=== PATIENT | male | born 1945 ===

== ENCOUNTER → 2023-08-20 09:16 | Outpatient (REF) | payer MEDICARE, OTHER, SELFPAY ==
[2023-08-20 11:43] LABS: Glycohemoglobin (HgbA1c) 8.1 % (4.0-5.6)
== END ==
LOC: OLABN 09:16
PROVIDERS: ATTENDING PHYSICIAN Student in an Organized Health Care Education/Training Program
DX: E11.21 Type 2 diabetes mellitus with diabetic nephropathy (principal)
CPT/HCPCS: 36415; 83036

== ENCOUNTER → 2024-02-25 10:24 | Outpatient (REF) | payer MEDICARE, OTHER, SELFPAY ==
[2024-02-25 11:57] LABS: Blood Urea Nitrogen 21 mg/dl (9-20); Calcium 8.9 mg/dl (8.4-10.2); Carbon Dioxide 31 mmol/L (22-30); Chloride 101 mmol/L (98-107); Glucose 120 mg/dl (70-99); Potassium 4.5 mmol/L (3.5-5.1); Sodium 137 mmol/L (135-145); eGFR > 60.00
== END ==
LOC: OLABN 10:24
PROVIDERS: ATTENDING PHYSICIAN Student in an Organized Health Care Education/Training Program
DX: I48.0 Paroxysmal atrial fibrillation (principal)
CPT/HCPCS: 36415; 80048

== ENCOUNTER → 2024-04-16 10:20 | Outpatient (REF) | payer MEDICARE, OTHER, SELFPAY ==
[2024-04-16 12:06] LABS: Glycohemoglobin (HgbA1c) 7.4 % (4.0-5.6)
== END ==
LOC: OLABN 10:20
PROVIDERS: ATTENDING PHYSICIAN Student in an Organized Health Care Education/Training Program
DX: E11.21 Type 2 diabetes mellitus with diabetic nephropathy (principal)
CPT/HCPCS: 36415; 83036

== ENCOUNTER → 2024-07-17 10:15 | Outpatient (REF) | payer MEDICARE, OTHER, SELFPAY ==
[2024-07-17 12:35] LABS: Glycohemoglobin (HgbA1c) 7.4 % (4.0-5.6)
== END ==
LOC: OLABN 10:15
PROVIDERS: ATTENDING PHYSICIAN Student in an Organized Health Care Education/Training Program
DX: E11.21 Type 2 diabetes mellitus with diabetic nephropathy (principal)
CPT/HCPCS: 36415; 83036

== ENCOUNTER → 2024-10-19 10:25 | Outpatient (REF) | payer MEDICARE, OTHER, SELFPAY ==
[2024-10-19 11:20] LABS: Hemoglobin 13.8 g/dL (13.0-18.0); Mean Corp Hgb Conc. 34.5 g/dL (33.0-37.0); Mean Corpuscular Hgb 33.9 pg (27.0-31.0); Mean Corpuscular Volume 98.3 fL (80.0-94.0); Mean Platelet Volume 12.8 fL (7.4-10.4); Platelet Count 144 10^3/uL (130-400); Red Blood Cell Count 4.07 10^6/uL (4.70-6.10); Red Cell Dist. Width 11.7 % (11.5-14.5); White Blood Cell Count 8.8 10^3/uL (4.8-10.8)
[2024-10-19 11:57] LABS: Blood Urea Nitrogen 19 mg/dl (9-20); Calcium 8.7 mg/dl (8.4-10.2); Carbon Dioxide 29 mmol/L (22-30); Chloride 105 mmol/L (98-107); Glucose 122 mg/dl (70-99); Sodium 143 mmol/L (135-145); eGFR > 60.00
[2024-10-19 12:03] LABS: Glycohemoglobin (HgbA1c) 7.5 % (4.0-5.6)
[2024-10-19 14:21] LABS: Vitamin D, 25-OH*** 42.1 ng/mL (30-80)
[2024-10-19 14:35] LABS: TSH 2.76 uIU/ml (0.47-4.68)
== END ==
LOC: OLABN 10:25
PROVIDERS: ATTENDING PHYSICIAN Student in an Organized Health Care Education/Training Program
DX: E55.9 Vitamin D deficiency, unspecified (principal); R94.6 Abnormal results of thyroid function studies; E11.21 Type 2 diabetes mellitus with diabetic nephropathy
CPT/HCPCS: 36415; 80048; 82306; 83036; 84443; 85027

== ENCOUNTER → 2024-11-23 09:54 | Outpatient (REF) | payer MEDICARE, OTHER, SELFPAY ==
[2024-11-23 10:44] LABS: Blood Urea Nitrogen 28 mg/dl (9-20); Carbon Dioxide 33 mmol/L (22-30); Chloride 107 mmol/L (98-107); Glucose 206 mg/dl (70-99); Potassium 4.1 mmol/L (3.5-5.1); Sodium 145 mmol/L (135-145); Uric Acid 8.1 mg/dl (3.5-8.5); eGFR > 60.00
== END ==
LOC: OLABN 09:54
PROVIDERS: ATTENDING PHYSICIAN Student in an Organized Health Care Education/Training Program
DX: R22.31 Localized swelling, mass and lump, right upper limb (principal)
CPT/HCPCS: 36415; 80048; 84550

== ENCOUNTER → 2025-01-13 12:12 | Outpatient (REF) | payer MEDICARE, OTHER, SELFPAY | LOC: OLABN 12:12 | PROVIDERS: ATTENDING PHYSICIAN Student in an Organized Health Care Education/Training Program | DX: E11.21 Type 2 diabetes mellitus with diabetic nephropathy (principal) | CPT/HCPCS: 36415 ==

== ENCOUNTER → 2025-02-03 15:51 | Outpatient (REF) | payer MEDICARE, OTHER, SELFPAY ==
[2025-02-03 17:03] LABS: Urine Character Clear (Clear)
[2025-02-03 17:13] LABS: Urine Squamous Cell 0-2 /LPF (Few); Urine White Cell 0-2 /HPF (0-5)
== END ==
LOC: OLABN 15:51
PROVIDERS: ATTENDING PHYSICIAN Student in an Organized Health Care Education/Training Program
DX: R82.90 Unspecified abnormal findings in urine (principal)
CPT/HCPCS: 81003; 81015; 87086

== ENCOUNTER 2025-02-05 05:00 | Inpatient (IN) | payer MEDICARE, OTHER, SELFPAY ==
[2025-02-05] VITALS (62 sets, daily range): BP systolic 87–121; BP diastolic 53–85; BMI 21.5; BMI 20.7
--- NOTE | 2025-02-05 01:38 | ED.GENMED ---
History of Present Illness
General
Chief Complaint: Breathing Problem
Source: patient
Exam Limitations: none
Time Seen by Provider: 02/05/25 01:37
Nursing documentation reviewed up to this point in time: agreed with
History of Present Illness
History of Present Illness:
Patient presents to ED from custodial secondary to mental status change along with low oxygen level, noted by staff during D5 water infusion, which was started secondary to 'hyponatremia'. Patient does have a history of dementia and does not
verbalize often, but is able to answer yes or no to simple questions. Per brother, via phone, patient has been declining overall for the past couple weeks, becoming less responsive and less verbal. Patient does have DNR advance directive on file,
confirmed by brother. Patient is not to receive any invasive procedures, i.e. intubation or chest compressions. Brother does request medical treatment. Patient is not able to provide any further information. Patient, however, is found to be
febrile upon arrival.
Past History
Past History
ED Past Medical History: Arrthythmia, HTN, Hypercholesterolemia, IDDM and Other (dementia, Parkinson's, sleep apnea)
Review of Systems
Review of Systems
Allergies reviewed?: Yes
Unable to obtain full review of systems at this time due to: dementia
All Other Systems: Not applicable
Phy Exam
Physical Exam
Physical Exam:
Physical Exam
General: mild respiratory distress, acutely ill. febrile
Head: nc/at
Neck: supple. no meningeal signs. no jvd
Heart: irregularly irregular
Lungs: no acute respiratory distress. clear bilaterally
Abdomen: normal bowel sounds. not tender.
Neuro: awake, but not following commands.
Skin: no rash
Psychiatric: well kept. interactive and cooperative
Extremities: no edema. no calf tenderness.
Scores
Heart Failure Risk
Heart Failure Risk Score: Not Applicable
Sepsis
Sepsis Screening
Sepsis Assessment: Sepsis
Sepsis Screen
Sepsis Screen: Sepsis
Date: 02/08/25
Time: 08:09
Course
Orders/Labs/Results
Orders:
Orders
02/05/25 01:28
Electrocardiogram (*1) Urgent
Reason for Study: Other
Other Reason for Exam: Respiratory Distress
EKG- Treatment ONCE
02/05/25 01:29
Complete Blood Count/With Diff Urgent
Comprehensive Metabolic Panel Urgent
NT-proBNP Urgent
02/05/25 01:37
CR Chest Portable - 1 View Urgent
Comment:
Reason For Exam: sob/hypoxia
Reason Study Needs to be Portable: Patient Unstable
02/05/25 01:49
Lactic Acid Q4H
Comment: WITH 1ST SET OF BLOOD CULTURES,CANCEL 2ND LACTIC ACID IF FIRST <2
02/05/25 02:02
Blood Culture Urgent
MANUEL Source: Blood/Venous
Specimen Description:
Date Specimen was Collected: 02/05/25
Time Specimen was Collected: 02:00
02/05/25 02:10
Blood Culture Urgent
MANUEL Source: Blood/Venous
Specimen Description:
Date Specimen was Collected: 02/05/25
02/05/25 02:18
Furosemide [Lasix] 20 mg IV NOW STA
02/05/25 02:28
CT Head W/o Iv Contrast Urgent
Comment:
Reason For Exam: mental status change
02/05/25 02:29
Arterial Blood Gas Urgent
%Oxygen/Room Air: 75
02/05/25 02:35
Piperacillin/Tazo 3.375 Gram [Zosyn] 3.375 gram in 50 ml IV NOW
02/05/25 02:36
Straight cath- Treatment ONCE
02/05/25 02:43
Acetaminophen [Tylenol/Feverall] 650 mg RECTAL NOW STA
02/05/25 03:22
Osmolality, Random Urine Urgent
Date Specimen was Collected: 02/05/25
Time Specimen was Collected: 03:14
Comment: ADD ON
Urinalysis Reflex To Culture Urgent
Date Specimen was Collected: 02/05/25
Time Specimen was Collected: 03:14
Urine Microscopic Reflex Cult Urgent
Urine Culture Urgent
MANUEL Source: U
Specimen Description:
Date Specimen was Collected: 02/05/25
Time Specimen was Collected: 03:14
02/05/25 03:57
COVID-19 Antigen Stat
Source: Nasal Swab
Influenza A+B Rapid Molecular Stat
MANUEL Source: Nasal Swab
Specimen Description:
02/05/25 04:07
Straight Cath As Directed
Frequency: One time now
02/05/25 04:30
Admit/Transfer Patient As Directed
Co-Sign Provider:
Level of Care: Inpatient admission
Assign to:: IMU- Intermediate Care
Physician / Group: Estuardo
Diagnosis: Acute hypoxic respiratory failure
Reason for Hospitalization: Hypoxic respiratory failure
Expected length of stay greater than two midnights?: Yes
ELOS- Estimated Length of Stay in days: 2
I certify the patient meets the requirements for IP care: Yes
02/05/25 04:31
PRN Pain Medication Management As Directed
May give lesser potent ordered pain med per pt: Yes
preference::
Protocol:: Medication orders for pain may be administered in a
manner that supports deferring to patient preference
when the pt is:
- Requesting an ordered lesser potent pain medication.
Least to most potent pain medications are defined
as: acetaminophen < NSAID < tramadol < opioids
(morphine, oxycodone, hydromorphone).
- Requesting a lesser dose of the same medication IF
ORDERED.
- Requesting a less intrusive route of administration
if both routes are prescribed by the provider (PO <
IV).
02/05/25 04:33
Code Status As Directed
Resuscitation Status: Do not resuscitate
Reached after discussion with pt or family/Healthcare POA: Yes
DNR Bracelet Application ONCE
02/05/25 04:45
Dextrose 5%/Water 1000 ml [D5w] 1,000 ml IV 125 mls/hr
02/05/25 05:00
Vancomycin [Vancocin] 2,000 mg 0.9% Sodium Chloride 500 ml [Nss] 500 ml IV ONCE
02/05/25 05:55
Acetaminophen [Tylenol/Feverall] 650 mg RECTAL Q6HPRN PRN
Acetaminophen [Tylenol] 650 mg PO Q4HPRN PRN
Ondansetron Injectable [Zofran] 4 mg IV Q6HPRN PRN
02/05/25 05:55
Echo 2D MMode Color/Doppler Routine
Reason for Study: hypoxia, eval EF, HCM
Consult Notification Routine
Specialty to Notify: Pulmonary
Date consulting provider notified: 02/05/25
Time consulting provider notified: 07:27
Notified:: Provider
PULMONARY CONSULT Routine
Consulting Provider: Sherley Schmid
Was physician already notified: No
Reason for consult: hypoxic respiratory failure
VTE Contraindication Routine
VTE Mechanical Device Contraindication: Medical Contraindication
Pharmocologic Contraindication: Medical Contraindication
Activity As Directed
Activity Level: Out of Bed-Early Mobility
Bedside Glucose Monitoring As Directed
Frequency: Q6H
Intake/ Output As Directed
Frequency: Per unit guidelines
Vital Signs As Directed
Frequency: Per unit guidelines
Weight As Directed
Frequency: Once
Comment: on admission
O2 Therapy [RESP] Routine
Non-Rebreather Mask: Yes
High Flow Nasal Cannula FIO2%: 100
High Flow Nasal Cannula Liter Flow: 60
Titrate/Wean O2 to maintain O2 sat greater than (%): 88
Special Instructions: Wean as tolerated
Pulse Ox/cont/shift [RESP] Routine
Quantity: 1
Special Instructions: notify provider if SPO2 < 91%
Pt Eval And Treat Routine
Activity Level: With Assistance
Speech Therapy Eval & Treat Routine
02/05/25 Breakfast
NPO
Allow oral meds: Yes
Allow clear liquids: Sips of Clears
Insulin Aspart Corrective Low [Novolog Flexpen-Low Resistance] See Protocol SC Q6
02/05/25 06:36
Basic Metabolic Panel IN AM
Lactic Acid Q4H
Comment: WITH 1ST SET OF BLOOD CULTURES,CANCEL 2ND LACTIC ACID IF FIRST <2
Procalcitonin IN AM
If negative, will antibiotics be d/c'd or not started: Yes
Does the patient have renal or hepatic impairment?: No
Any recent (w/in 48 hrs) physiologic stress (CPR, rhabdo): No
Prothrombin Time IN AM
Legionella Urinary Antigen Routine
MANUEL Source: Urine
Specimen Description:
Strep pneumoniae Antigen Routine
MANUEL Source: Urine
Specimen Description:
02/05/25 06:37
Complete Blood Count/No Diff IN AM
02/05/25 08:00
Apixaban [Eliquis] 5 mg PO BID
Piperacillin/Tazo 3.375 Gram [Zosyn] 3.375 gram in 50 ml IV Q6H
02/05/25 18:30
Venlafaxine Extended Release [Effexor Xr] 37.5 mg PO DAILY@1830
02/05/25 22:00
Tamsulosin [Flomax] 0.4 mg PO HS
Abnormal Lab Results
02/05/25 02/05/25 02/05/25
01:29 01:49 02:29
RBC 4.69 L 10^6/uL
(4.70-6.10)
MCV 102.1 H fL
(80.0-94.0)
MCH 33.5 H pg
(27.0-31.0)
MCHC 32.8 L g/dL
(33.0-37.0)
MPV 12.8 H fL
(7.4-10.4)
Absolute Neuts (auto) 8.4 H 10^3/uL
(1.4-6.5)
Absolute Lymphs (auto) 0.5 L 10^3/uL
(1.2-3.4)
Neutrophils % 88.0 H %
(42.2-75.2)
Lymphocytes % 5.1 L %
(20.5-51.1)
pO2 69 L mmHg
(83-108)
HCO3 30.6 H mmol/L
(21-28)
Sodium 157 H mmol/L
(135-145)
Chloride 120 H mmol/L
(98-107)
BUN 45 H mg/dl
(9-20)
Glucose 170 H mg/dl
(70-99)
Lactic Acid 2.5 H mmol/L
(0.7-2.0)
Total Bilirubin 1.7 H mg/dl
(0.2-1.3)
Urine Bilirubin
Urine Urobilinogen
Leukocyte Esterase Rfl
Urine RBC
Urine Bacteria (Reflex)
Urine Albumin (Reflex)
02/05/25
03:22
RBC
MCV
MCH
MCHC
MPV
Absolute Neuts (auto)
Absolute Lymphs (auto)
Neutrophils %
Lymphocytes %
pO2
HCO3
Sodium
Chloride
BUN
Glucose
Lactic Acid
Total Bilirubin
Urine Bilirubin 2+ A
(Negative)
Urine Urobilinogen 3+ A
(Neg - 1+)
Leukocyte Esterase Rfl 3+ A
(Negative)
Urine RBC 3-6 A /HPF
(0-2)
Urine Bacteria (Reflex) Few A
(Negative)
Urine Albumin (Reflex) 2+ A
(Neg - Trace)
02/05/25 01:29
02/05/25 01:29
Vital Signs
Initial and Last Documented VS:
Initial Vital Signs
Temp Pulse Resp BP Pulse Ox
101 F H 100 37 104/79 92
02/05/25 01:24 02/05/25 01:24 02/05/25 01:24 02/05/25 01:24 02/05/25 01:24
Last Documented Vital Signs
Temp Pulse Resp BP Pulse Ox
97.6 F 108 23 101/69 74
02/06/25 08:06 02/06/25 13:00 02/06/25 13:00 02/06/25 10:30 02/06/25 13:00
MDM/Problems Addressed
MDM/Problems Addressed:
Discussed with patient's brother, Jaylon Ragsdale, immediately upon patient's arrival. Discussed patient's CODE STATUS -DNR/DNI. Patient will be provided with medical support.
During observation, patient becoming more somnolent. ABG and CT head ordered. Patient presentation concerning for potential hypercapnia versus aspiration pneumonia versus less likely CVA.
Patient will be admitted for further evaluation and treatment, including IV antibiotics. As patient is on chronic Lasix treatment, with clinical findings concerning for fluid overload, patient will be given Lasix 20 mg IV.
Arterial blood gas results reviewed, significant hypoxia, without evidence of hypercapnia. As such, patient will be started on high flow oxygen.
Critical care statement: A total of 40 minutes of critical care time was provided for this patient. This includes management of unstable vital signs, evaluation of the patient at bedside, reviewing the patient's pertinent medical records, review of
old EKGs and review of pertinent medical records. This time with separate from time utilized to perform the aforementioned documented procedures
*Pulse Oximetry
SaO2: 92
Oxygen Mode of Delivery: Non-rebreather mask
Patient hypoxic: yes
*Critical Care Note
Total Time (30-74mins, 75-104mins- exclusive of procedures): 40 min
ED Attending Note
-
Portions of this chart may have been created with voice recognition software.� Occasional wrong word or��sound alike� substitutions may have occurred due to the inherent limitations of voice recognition software.
Discharge Plan
Departure
Patient Disposition: Admit
Date of Disposition: 02/05/25
Time of Disposition: 02:48
Admit to: IMU
Presentation/result/management discussed w/ accepting MD/DO: Hospitalist
Discharge Problem:
Hypoxia, Fever
Interventions
Interventions:
*Risk Screen - Suicide Last Done: 02/05/25 01:45
*General Assessment Last Done: 02/05/25 02:21
*Neglect/Abuse Screening Last Done: 02/05/25 03:32
*ED- Fall Risk Assessment Last Done: 02/05/25 02:21
*ED COVID-19 Vaccine History Last Done: 02/05/25 02:21
*Nursing Disposition Last Done: 02/05/25 06:14
ED- Cardiac Assessment Last Done: 02/05/25 02:13
ED- Pulmonary Assessment Last Done: 02/05/25 02:14
Discharge Date and Time
Discharge Date/Time: 02/05/25 06:00
[2025-02-05 01:51] LABS: Hematocrit 47.9 % (39.0-52.0); Hemoglobin 15.7 g/dL (13.0-18.0); Mean Corp Hgb Conc. 32.8 g/dL (33.0-37.0); Mean Corpuscular Volume 102.1 fL (80.0-94.0); Platelet Count 148 10^3/uL (130-400); Red Cell Dist. Width 12.4 % (11.5-14.5)
[2025-02-05 02:28] LABS: ALT (SGPT) 16 U/L (0-50); AST (SGOT) 24 U/L (17-59); Albumin 3.5 g/dl (3.5-5.0); Alkaline Phosphatase 57 U/L (38-126); Blood Urea Nitrogen 45 mg/dl (9-20); Calcium 9.4 mg/dl (8.4-10.2); Carbon Dioxide 28 mmol/L (22-30); Chloride 120 mmol/L (98-107); Estimated Creatinine Clearance 49 ml/min; Glucose 170 mg/dl (70-99); Potassium 4.0 mmol/L (3.5-5.1); Sodium 157 mmol/L (135-145); Total Protein 6.9 g/dl (6.3-8.2); eGFR > 60.00
[2025-02-05 02:41] LABS: B.E. 5.7 mmol/L; HCO3 30.6 mmol/L (21-28); O2 Saturation % 96.0 % (94-98); PCO2 44 mmHg (35-48); PO2 69 mmHg (83-108)
[2025-02-05 02:44] LABS: O2 Therapy 75
[2025-02-05] MEDS: LASIX 20 MG IV (02:47)
[2025-02-05] MEDS: ZOSYN 50 IV ×4 (02:48→20:06)
[2025-02-05] MEDS: TYLENOL/FEVERALL 650 MG RECTAL ×2 (02:48→20:26)
[2025-02-05 03:19] LABS: Nucleated Red Blood Cells % 0 % (-)
--- NOTE | 2025-02-05 03:36 | HPS.HSE ---
Family Physician
-
Family Physician: Gorge Ayoub,
Chief Complaint
-
Respiratory distress
History of Present Illness
This is a 79-year-old male with past medical history of dementia, Parkinson's, hypertrophic cardiomyopathy, atrial fibrillation on anticoagulation, chronic depression, insulin-dependent diabetes who presents from retirement care with acute
hypoxia respiratory distress.
According to family members patient has been at the [facility] for few years. He started to decline about 6 months ago. At that time is antidepressants have been weaned off from family felt that they started to withdrawal. He had
decreased p.o. intake and less interactions. He is chronically immobile requiring a wheelchair which is his baseline but he can respond with his words and interactive with normal affect. However he has had decreasing water usage and flattening
affect. Family restarted the venlafaxine recently. Does not made any difference. [facility] to [facility] records patient was seen recently for continued decline and was found to be hyponatremic. He was started on D5 by IV and soon after
developed hypoxic respiratory distress. He had a prior history of CVA, family concerned about perhaps a recent CVA to explain his decline in mental status. No reported history of fluid losses.
He has been on Lasix 80 mg for edema for several years and there has been no change recently. Unclear to me what his normal baseline is but family reports that he response today and nods. He does not speak.
He arrived in the ED on 100% nonrebreather and was placed on high flow, he had a temp of 101, blood pressure was 100/65 with a pulse rate of 88 and he was satting 93% on the high flow. Blood Gas was 7.45/44/69/30.6. X-ray with right lower lobe
opacity for me. CT of the head shows no acute interval changes.
ECG with atrial fibrillation no acute ST or T wave changes. CBC was unremarkable with hemoglobin of 15.7. Electrolytes show a sodium of 157 with a bicarb of 28 and a chloride of 120. BUN/creatinine were 45 and 1.2 respectively. BNP > 12689.
Medical History
Past Medical History
Past Medical History: Reports Arrhythmia (atrial fibrillation), CHF (Hypertrophic cardiomyopathy), CVA, Dementia, NIDDM and Other (parkinson, HAO on CPAP)
Past Surgical History: Reports Other
Social History
Unable to obtain full social history at this time due to: Dementia
Family History
Family History: Not pertinent
Allergies / Home Medications
Allergies reflects when Allergies were last updated in [facility].
Home Medications with original date entered in [facility]
Allergy/Medication List:
Allergies
Allergy/AdvReac Type Severity Reaction Status Date / Time
Anesthetics - Amide Type - Allergy Unknown Pharmacy Verified 08/16/21 16:03
Select A to Review
metformin Allergy Unknown Verified 08/16/21 14:25
Sulfa (Sulfonamide Allergy Unknown Verified 08/16/21 14:25
Antibiotics)
Home Medications
apixaban 5 mg tablet (Eliquis) 5 mg PO BID Blood clot prevention/tx 08/16/21
furosemide 20 mg tablet 20 mg PO DAILY Fluid retention/Swelling 08/16/21
insulin glargine 100 unit/mL (3 mL) subcutaneous pen (Basaglar KwikPen U-100 Insulin) 10 unit SC DAILY Diabetes 08/16/21
lactulose 20 gram/30 mL oral solution 30 ml PO HSPRN PRN lack of bm 08/16/21
polyethylene glycol 3350 17 gram oral powder packet 17 grams PO DAILY Constipation 08/16/21
potassium chloride 10 mEq tablet,extended release(part/cryst) 10 meq PO DAILY Electrolyte Repletion 08/16/21
tamsulosin 0.4 mg capsule 0.4 mg PO HS Urinary issue 08/16/21
venlafaxine 37.5 mg capsule,extended release 24 hr (Effexor XR) 75 mg PO DAILY@1830 Depression 08/16/21
Review of Systems
-
Unable to obtain full review of systems at this time due to: Dementia
Physical Exam
Vital Signs
Vital Signs
Temp Pulse Resp BP Pulse Ox
101 F H 92 26 96/63 93
02/05/25 01:46 02/05/25 03:30 02/05/25 03:30 02/05/25 03:00 02/05/25 03:30
Physical Exam
General: Appears Chronically Ill
HEENT: NormoCephalic, Anicteric, Atraumatic and Oxygen; No Moist mucous membranes
Respiratory: Decreased Breath Sounds
Cardiac: S1/S2 and Irregular Rhythm
Breast: Deferred by me
GI: Soft, Non Tender and Non Distended
Rectal: Deferred by Provider
Genito-urinary: Other (incontinent)
Musculoskeletal: No Clubbing, No Cyanosis and No Edema
Skin: Warm
Neuro: Awake and Other (non-verbal, nods occasionally to simple commands. No focused movement. Protecting airways. ); No Alert, Oriented or Facial Droop
Psych: Calm
Laboratory Results
-
02/05/25 01:29
02/05/25 01:29
Laboratory Results
pH 7.45 (7.35-7.45) 02/05/25 02:29
pCO2 44 mmHg (35-48) 02/05/25 02:29
pO2 69 mmHg (83-108) L 02/05/25 02:29
HCO3 30.6 mmol/L (21-28) H 02/05/25 02:29
Lactic Acid 2.5 mmol/L (0.7-2.0) H 02/05/25 01:49
Total Bilirubin 1.7 mg/dl (0.2-1.3) H 02/05/25:
AST 24 U/L (17-59) 02/05/25:
ALT 16 U/L (0-50) 02/05/25:29
Alkaline Phosphatase 57 U/L (38-126) 02/05/25 01:29
Data Reviewed
-
Diagnostic Radiology: Image Personally Visualized and interpreted
CT Scan: Report Reviewed by me
Medical Tests (Nuc Med, Echo, EKG etc): Image Personally Visualized and interpreted
Lab Data: Labs Reviewed by me
Old Records: Reviewed
Impression/Plan
-
IMPRESSION:
79 y.o with fever, acute hypoxic respiratory failure, depressed mental status, metabolic alkalosis and severe hyponatremia. BNP evated and know HCM history but does not appear overloaded and not hypertensive here. Suspect aspiration pneumonia in
setting of declining mental status and hypernatremia.
PLAN:
1. Hypoxic respiratory failure - Suspect aspiration pna with RLL infiltrate. Very limited airway movement on the right. Cannot rule bronchial mucus plug. Despite elevated bnp, no peripheral edema, no jvd, no abraham pulmonary edema.
- admit to med/surg
- poor candidate for bibap due to mental status and aspiration risk
- HI FLOW 60L, 100% FIO2 keep sat > 95 +/- NRB as needed.
- blood cultures sent
- start Vanc/Zosyn
- obtain u/a and rule out UTI
- pulmonary consultation
- no intubation
2. Hypernatremia - Na 157. Unclear duration. Seemed to have had labs yesterday afternoon demonstrating this. Labs from november normal. Suspect 2/2 worsening mental status with hypovolemic hyponatremia rather than DI
- urine osmolality
- free water deficit = 3 L for goal Na 147 , corrected over 48@ D5W at 100ml/hr then reduce to 75ml/hr when < 147
- check Na q 4 - 6 hours
3. CHF - BNP > 60224. Known HCM. Some pulmonary edema, no peripheral or JVD. Cannot rule out flash. Clinical picture otherwise is suggestive of dehydration and infection.
- check echo
- given lasix in ED, monitor and redose if no improvement
- cardiology consultation
4. AFIB
- continue eliquis
- off rate control, prn metoprolol
5. DM II
- npo except meds
- sliding scale insulin for now
DVT PPX - on eliquis
Code status - DNR/DNI, poor prognosis given severe respiratory failure and limited acute response to lasix. Left a message for [employer] on behalf of family.
[2025-02-05 03:45] LABS: Urine Character Clear (Clear)
[2025-02-05 04:19] LABS: COVID-19 Antigen Negative (Negative)
[2025-02-05] MEDS: VANCOCIN 540 MG IV (05:11)
[2025-02-05] MEDS: D5W 1000 IV ×2 (05:12→09:31)
--- NOTE | 2025-02-05 06:56 | W.PN.UPDATE ---
Update Note
Progress Note Update
BP 78/50's, won't tolerate IV fluids, unable to take PO medicine, will start Levophed infusion at present. Family awaiting for airplane dispatcher to make final decision.
[2025-02-05 06:57] LABS: Hematocrit 44.5 % (39.0-52.0); Hemoglobin 14.2 g/dL (13.0-18.0); Mean Corp Hgb Conc. 31.9 g/dL (33.0-37.0); Mean Corpuscular Volume 104.0 fL (80.0-94.0); Platelet Count 132 10^3/uL (130-400); Red Cell Dist. Width 12.5 % (11.5-14.5)
[2025-02-05 07:06] LABS: INR 2.13; PT 23.9 Sec (11.4-14.6)
[2025-02-05] MEDS: LEVOPHED 250 IV (07:10)
[2025-02-05 07:23] LABS: Blood Urea Nitrogen 44 mg/dl (9-20); Calcium 8.0 mg/dl (8.4-10.2); Carbon Dioxide 26 mmol/L (22-30); Chloride 121 mmol/L (98-107); Estimated Creatinine Clearance 53 ml/min; Glucose 207 mg/dl (70-99); Potassium 3.4 mmol/L (3.5-5.1); Sodium 154 mmol/L (135-145); eGFR > 60.00
--- NOTE | 2025-02-05 07:34 | PTCARENOTE ---
Pt admit from ED ~0550. IVF and vanco infusing as ordered. HFNC maxed. Pt settled to room, hygiene provided. Shortly after arrival, pt desat to 80s. 15L NRB applied, desat further to 70s. Pt opening eyes but no longer nodding head yes. Respiratory
at bedside, TT SUPER[employer]OR [employer]ING [employer]ph[employer]. Am labs drawn and sent. Family at bedside. BP low, [employer] aware - levo ordered. Pastoral care contacted.
[2025-02-05 07:36] LABS: Procalcitonin 0.69 ng/ml (0.0-0.25)
--- NOTE | 2025-02-05 08:12 | CHAP ---
Addendum entered by Chio Shine 02/05/25 12:26:
Monsignor Burt provided Sacrament of the Sick as requested.
Original Note:
Emotional and spiritual support provided, prayer blanket given. Request relayed to [facility] for Sacrament of the Sick, awaiting a call back. Will follow.
[2025-02-05] MEDS: NOVOLOG FLEXPEN-LOW RESISTANCE SC ×2 (08:23→08:24)
--- NOTE | 2025-02-05 10:15 | PHA.VAN.IN ---
Addendum entered and electronically signed by Debbie Alston Ivana 02/05/25 11:10:
Agree with resident's assessment and plan below
Original Note:
Assessment
- Assessment
Renal Function: Appears similar to baseline
Concomitant Antimicrobials: piperacillin/tazobactam
Plan
- Plan
Initial / Loading Dose: 2000mg load 02/05 511
Maintenance Regimen: dosing by level
Monitoring: random level 02/06 600
MRSA Screen: Ordered per protocol
Pharmacokinetics Vancomycin I
- -
Patient Age: 79
Patient Sex: Male
Vancomycin Day #: 1
Indication: Pulmonary/Respiratory
Requesting Provider: Dr. Marte
Pertinent Antimicrobial Allergies:
sulfa - reaction unknown
Height / Weight:
Height 5 ft 10 in
Actual Weight 65.4 kg
Pertinent Past Medical History: chronically immobile, DM2
- Vital Signs / Lab Results
Temp Pulse Resp BP Pulse Ox
99.4 F 92 31 104/67 98
02/05/25 07:00 02/05/25 04:30 02/05/25 04:30 02/05/25 04:00 02/05/25 07:39
Lab Results - Hematology
02/05/25 02/05/25
01:29 06:37
WBC 9.6 8.1
Lab Results - Chemistry
02/05/25 02/05/25
01:29 06:36
BUN 45 H 44 H
Creatinine 1.2 1.1
Estimated Creat Clear 49 53
Albumin 3.5
02/05/25 02/05/25
01:49 06:36
Lactic Acid 2.5 H 2.0
Lab Results - Urine
02/05/25
03:22
Urine Nitrite (Reflex) Negative
Leukocyte Esterase Rfl 3+ A
Urine WBC (Reflex) 3-5
Ur Squamous Epith Cells 3-5
Urine Bacteria (Reflex) Few A
Microbiology Results
02/05/25 06:36 Legionella Urinary Antigen - Final
Urine Negative for Legionella pneumophila Serogroup 1 antigen.
A negative result does not rule out the possiblity of
Legionella infection due to other serogroups or species of
Legionella. Clinical correlation is recommended.
Streptococcus pneumoniae Antigen (M - Final
Negative for Streptococcus pneumoniae antigen.
A negative result does not exclude infection with
Streptococcus pneumoniae. Clinical correlation is
recommended.
02/05/25 03:57 Influenza Types A & B (SONIA) - Final
Nasal Swab Negative for Influenza A & B, NAAT
Negative results must be combined with clinical observations
and patient history.
Nucleic Acid Amplification test (NAAT)performed on the
[employer] platform.
--- NOTE | 2025-02-05 10:40 | W.PN.UPDATE ---
Update Note
Progress Note Update
Update:
Consult placed for hypoxemia evaluation but family may decide to go comfort
Consult on hold for now until family decision made
Discussed case with hospitalist.
--- NOTE | 2025-02-05 10:45 | PTCARENOTE ---
Pt rec'd this am in report from off going RN, pt had arrived to unit at 0600, was maxxed on high flow and NRB, levophed ordered and initiated -see flowsheet for details. DNR/DNI orders in place, family requesting professional development manager and . notified,
professional development manager arrived, emotional support provided. Dr. Mohan arrived to bedside to discuss plan of care with family at length. arrived at bedside with family 10:45. Pulm and cards consult held off at this time pending decision by family.
Emotional support ongoing.
[2025-02-05] MEDS: LR 1000 IV (11:55)
--- NOTE | 2025-02-05 12:09 | CON.PUL ---
Consultation
Consultation Request
Date/Time Consultation Requested: 02/05/25
Date/Time Consultation Performed: 02/05/25
Performing Provider: Sharmaine
Reason for Consultation: SOB, hypoxia
Medical History
-
History of Present Illness:
Patient is a 79-year-old male with past medical history of dementia, Parkinson's, hypertrophic cardiomyopathy, atrial fibrillation on anticoagulation, chronic depression, insulin-dependent diabetes who presents from care home care with acute
hypoxic respiratory distress. Arrived in the ED on 100% nonrebreather and was placed on high flow. Had a temp of 101F, blood pressure was 100/65 with a pulse rate of 88 and he was satting 93% on the high flow. Blood Gas was 7.45/44/69/30.6. X-ray
with right lower lobe opacity for me. CT of the head shows no acute interval changes. ECG with atrial fibrillation no acute ST or T wave changes. CBC was unremarkable with hemoglobin of 15.7. Electrolytes show a sodium of 157 with a bicarb of 28
and a chloride of 120. BUN/creatinine were 45 and 1.2 respectively. BNP > 02342. He is placed on pressors and admitted to IMU for shock from possible cardiogenic vs septic vs obstructive shock.
It is reported the patient has been at the nursing facility for a few years but has started to decline about 6 months ago. He had decreased p.o. intake and less interactions/speaking. He is chronically immobile requiring a wheelchair which is his
baseline. According to [facility] records patient was seen by outpatient providers recently for continued decline and was found to be hyponatremic. He was started on IVFs and soon after developed hypoxic respiratory distress.
He is DNR, family is in discussion regarding GOC. He only has two siblings, he is not and has no children.
Past Medical History
Past Medical History: Other (see list below)
Social History
Tobacco: Non-smoker
Alcohol: None
Drug: None
Allergies / Home Medications
Allergies
Allergy/AdvReac Type Severity Reaction Status Date / Time
Anesthetics - Amide Type - Allergy Unknown Pharmacy Verified 08/16/21 16:03
Select A to Review
metformin Allergy Unknown Verified 08/16/21 14:25
Sulfa (Sulfonamide Allergy Unknown Verified 08/16/21 14:25
Antibiotics)
Home Medications
�Medication �Instructions �Recorded �Confirmed �Last Taken �Type
acetaminophen 325 mg tablet 650 mg PO Q4HPRN PRN mild 08/16/21 08/16/21 Unknown History
pain/fever
apixaban 5 mg tablet (Eliquis) 5 mg PO BID Blood clot 08/16/21 08/16/21 08/16/21 08:30 History
prevention/tx
atorvastatin 20 mg tablet 20 mg PO HS High cholesterol 08/16/21 08/16/21 08/15/21 18:30 History
bisacodyl 10 mg rectal suppository 10 mg FL DAILYPRN PRN if lactulose 08/16/21 08/16/21 Unknown History
ineffective
furosemide 20 mg tablet 20 mg PO DAILY Fluid 08/16/21 08/16/21 08/16/21 08:30 History
retention/Swelling
insulin aspart U-100 100 unit/mL 0 units SC .SLIDING SCALE MEALS 08/16/21 08/16/21 08/15/21 16:30 History
subcutaneous solution (Novolog Diabetes 2 units
U-100 Insulin aspart)
insulin glargine 100 unit/mL (3 10 unit SC DAILY Diabetes 08/16/21 08/16/21 08/16/21 08:30 History
mL) subcutaneous pen (Basaglar
KwikPen U-100 Insulin)
lactulose 20 gram/30 mL oral 30 ml PO HSPRN PRN lack of bm 08/16/21 08/16/21 Unknown History
solution
metoprolol succinate 50 mg 50 mg PO DAILY Blood pressure 08/16/21 08/16/21 08/16/21 08:30 History
tablet,extended release 24 hr
midodrine 5 mg tablet 5 mg PO TID@0030,0830,1630 Blood 08/16/21 08/16/21 08/16/21 08:30 History
pressure
polyethylene glycol 3350 17 gram 17 grams PO DAILY Constipation 08/16/21 08/16/21 08/16/21 08:30 History
oral powder packet
polyvinyl alcohol-povidone (PF) 2 drops BOTH EYES BID dry eyes 08/16/21 08/16/21 08/16/21 08:30 History
1.4 %-0.6 % eye drops in a
dropperette (Refresh Classic (PF))
potassium chloride 10 mEq 10 meq PO DAILY Electrolyte 08/16/21 08/16/21 08/16/21 08:30 History
tablet,extended release(part/cryst) Repletion
selenium sulfide 1 % shampoo 1 applic topical TUFR scalp issues 08/16/21 08/16/21 Unknown History
(Selsun Blue)
sennosides 8.6 mg tablet (senna) 2 tab PO HS Constipation 08/16/21 08/16/21 08/15/21 18:30 History
sodium chloride 0.65 % nasal spray 1 sprays intranasal HS nasal 08/16/21 08/16/21 08/15/21 18:30 History
aerosol (Saline Nasal) dryness
tamsulosin 0.4 mg capsule 0.4 mg PO HS Urinary issue 08/16/21 08/16/21 08/15/21 18:30 History
venlafaxine 150 mg 150 mg PO HS Depression 08/16/21 08/16/21 08/15/21 18:30 History
capsule,extended release 24 hr
(Effexor XR)
venlafaxine 75 mg capsule,extended 75 mg PO DAILY@1830 Depression 08/16/21 08/16/21 08/15/21 18:30 History
release 24 hr (Effexor XR)
Review of Systems
-
Unable to Obtain full review of systems at this time due to: Dementia
Vitals / Labs / Diagnostic Testing
Vital Signs
Temp Pulse Resp BP Pulse Ox
99.4 F 92 31 104/67 98
02/05/25 07:00 02/05/25 04:30 02/05/25 04:30 02/05/25 04:00 02/05/25 07:39
Lab Data
02/05/25 06:37
02/05/25 06:36
Laboratory Results
02/05/25 02/05/25
02:29 06:36
PT 23.9 H
INR 2.13
pH 7.45
pCO2 44
pO2 69 L
HCO3 30.6 H
O2 Delivery Level 75
Microbiology
02/05/25 06:36 Urine Legionella Urinary Antigen - Final
Negative for Legionella pneumophila Serogroup 1 antigen.
A negative result does not rule out the possiblity of
Legionella infection due to other serogroups or species of
Legionella. Clinical correlation is recommended.
02/05/25 06:36 Urine Streptococcus pneumoniae Antigen (M - Final
Negative for Streptococcus pneumoniae antigen.
A negative result does not exclude infection with
Streptococcus pneumoniae. Clinical correlation is
recommended.
02/05/25 03:57 Nasal Swab Influenza Types A & B (SONIA) - Final
Negative for Influenza A & B, NAAT
Negative results must be combined with clinical observations
and patient history.
Nucleic Acid Amplification test (NAAT)performed on the
[employer] platform.
Diagnostic Testing:
Physical Exam
-
HEENT: Normocephalic, Anicteric and Moist Mucous Membranes
Cardiovascular: S1/S2 and Regular Rhythm
Respiratory: Rales, Non-Labored Respirations and Other (on NRB)
GI: Soft, Non Distended and Non Tender
Neurology: Other (lethargic, minimally arousable)
Skin: Warm and Dry
General: Comfortable and Other (chronically ill appearing, pale)
Assessment
-
Patient is a 79-year-old male with past medical history of dementia, Parkinson's, hypertrophic cardiomyopathy, atrial fibrillation on anticoagulation, chronic depression, insulin-dependent diabetes who presents from care home [facility] with acute
hypoxic respiratory distress. Arrived in the ED on 100% nonrebreather and was placed on high flow. Had a temp of 101F, blood pressure was 100/65 with a pulse rate of 88 and he was satting 93% on the high flow. Blood Gas was 7.45/44/69/30.6. X-ray
with right lower lobe opacity for me. CT of the head shows no acute interval changes. ECG with atrial fibrillation no acute ST or T wave changes. CBC was unremarkable with hemoglobin of 15.7. Electrolytes show a sodium of 157 with a bicarb of 28
and a chloride of 120. BUN/creatinine were 45 and 1.2 respectively. BNP > 28615. He is placed on pressors and admitted to IMU for shock from possible cardiogenic vs septic vs obstructive shock.
Shock on pressors, unclear etiolgy
Possible CHF, PE, and/or sepsis
Fever
Acute hypoxic respiratory failure on NRB 100%
RLL Infiltrate
Unresponsiveness
Hypernatremia
Decreased PO intake, FTT
Afib on EKG
Acute HF exacerbation, proBNP >17721
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
Atrial fibrillation on Eliquis
CHF
Hypertrophic cardiomyopathy
CVA
Dementia
IDDM
Parkinson
HAO on CPAP
Plan
Hypoxemia noted on arrival, placed on 100% NRB
Prior history of lung disease is noted including HAO on CPAP
He does not have underlying history of hypoxemia
Suspect patient has CHF but cannot r/o PE possibly due to profound hypoxemia
ABG showing paO2 69
CXR/CT obtained indicating CHF findings, cannot exclude VTE
Would need CTA to rule out PE but we discussed the risk and benefit of this study, given oliguria/creatinine 1.1 in an elderly patient
The patient's brother would not want patient to go undergo further testing
Patient has a history of hypertrophic cardiomyopathy
No prior echo is available for review
Agree with repeat study which is pending
He does appear to be in overt heart failure with proBNP greater than 27,000
He is unable to be diuresed due to hypotension, he is currently on pressors
Maintain n.p.o. status given hypoxemia
Aspiration precautions
He has had decreased p.o. intake in the last few months
We need to address feeding status eventually
Hypernatremia noted, likely dehydration
Was placed on IV fluids as an outpatient but developed acute decompensated heart failure
He is placed on D5 IV fluid--this is not helping in terms of heart failure diagnosis
We had a prolonged conversation/discussed with the family regarding patient's long-term prognosis and current respiratory status. We are limited in terms of her treatment options based on his hypotension and overt heart failure. He would also need
to be ruled out for underlying VTE. This would be also at the expense of his renal function especially at his age. Ultimately, this does not change his overall trajectory or quality of life given his deterioration in the past 6 months in terms of
self care, feeding himself, mobility. He would still be appropriate for hospice regardless of where his clinical status goes.
The patient's brother understands the overall poor prognosis in this situation but his sister has been stating that she does not feel comfortable placing him on a morphine drip even though this is what the brother understands the patient would want.
The sister states that she would not want this for herself therefore she cannot wish this upon her brother. I have implored her to make decisions based on what the patient has expressed for himself or what he has placed upon his living will and
not to follow her own wishes for herself. The patient's brother indicates that he is only willing to extend care for another 24 hours and he would like to withdrawal after that. They were both in agreement that they would meet with our hospice
team to get more information and help navigate this decision. Consult is placed.
He is DNR.
We will follow
Diagnostic Data
Chest X-Ray: 02/05/25- 1. Mild interstitial prominence, suggestive of mild pulmonary edema.
2. Moderate cardiomegaly.
3. Haziness of right hemidiaphragm, which may be related to right lower lobe airspace disease and/or small right pleural effusion.
08/16/21- . Mild interstitial prominence, suggestive of mild pulmonary edema.
2. Moderate cardiomegaly.
3. Haziness of right hemidiaphragm, which may be related to right lower lobe airspace disease and/or small right pleural effusion.
CT Scan: HCT 02/05/25-1. No acute intracranial abnormalities appreciated.
2. Mild atrophy and mild chronic small vessel change.
3. No significant change compared to prior study.
Echo:
PFT's:
Reports and relevant images were personally reviewed.
Total time spent on this consultation __80__ minutes which includes review of history, physical exam, medications, laboratory data, personal review of imaging, extensive review of outpatient records, discussion with care team and respiratory therapy.
[2025-02-05 12:45] LABS: Glucose - Point of Care 262 mg/dl (70-99)
--- NOTE | 2025-02-05 13:03 | CM ---
Initial assessment deferred. Multiple family members at bedside, crying and saying their good-byes to patient. Hospice referral forwarded.
--- NOTE | 2025-02-05 13:30 | PTCARENOTE ---
Pt was turned and repositioned, CHG bath performed, oral and pericare done. Pt desatting afterward with +prod cough, thick larson sputum noted. Family updated at bedside. Care ongoing.
[2025-02-05] MEDS: NOVOLOG FLEXPEN-LOW RESISTANCE 3 UNITS SC (13:51)
--- NOTE | 2025-02-05 14:15 | CARDSERVLU ---
Echocardiogram with [facility] completed after protocol screening completed. Allergies verified.
Patent IV site: __left wrist___
IV site flushed with 0.9% NaCl pre and post administration.
Diluted bolus method utilized to enhance visualization of ventricular monzon.
Total volume given: __3.5__ mL
Patient tolerated all procedures well without complications.
--- NOTE | 2025-02-05 14:44 | HOSPNOTE ---
Spoke with family about hospice and the philosophy. At this time the family wants to continue the support of all medications and high flow oxygen but no further testing. The family will make decision to withdraw care tomorrow. Attending aware and
CM. The plan is tomorrow place on comfort since it appears will be imminent. We will continue to follow.
--- NOTE | 2025-02-05 15:38 | W.PN.UPDATE ---
Update Note
Progress Note Update
Had extensive conversation with family. Patient has been chronically declining for the last 1-1 and half year, requiring 2 person assist in 2022 and requiring to be spoon fed since November. Expressed that the symptoms are more than likely acute
chronic with aspiration being a likely factor in contributing to the decline in the situation although his worsening dementia is overall the underlying etiology for most issues. Received D5W to control some sodium levels, continue antibiotics for
now. Had extensive conversation with myself, vp construction and hospice team regarding goals of care. No further testing as per family. Will decide within 24 hours of trajectory. At this time continue IV antibiotics. Wean pressors as tolerated.
Would hold on further fluids due to elevated proBNP and possible heart failure. Continue oxygen supplementation and wean as tolerated.
--- NOTE | 2025-02-05 16:17 | W.PN.UPDATE ---
Documented by User: Paris Michaud PA-C 02/05/25 16:19
Update Note
Progress Note Update
cardiology consulted on this patient overnight. upon discussing with patient's care team this AM, due to ongoing goal of care conversations, consult was suspended. discussed with hospitalist this afternoon, no need for consult at this time. if
needed, please notify us.

Documented by User: Dino Nielsen DO 02/05/25 16:31
Update Note
Progress Note Update
cardiology consulted on this patient overnight. upon discussing with patient's care team this AM, due to ongoing goal of care conversations, consult was suspended. discussed with hospitalist this afternoon who stated no need for consult at this
time. if needed, please notify us.
[2025-02-05] MEDS: KCL 270 MEQ IV (17:25)
[2025-02-05] MEDS: NOVOLOG FLEXPEN-LOW RESISTANCE 1 UNITS SC (17:25)
[2025-02-05 17:34] LABS: Glucose - Point of Care 174 mg/dl (70-99)
--- NOTE | 2025-02-05 18:27 | PTCARENOTE ---
Pt turned and repositioned, condom cath had fallen off, pericare provided and Covidien replaced. Sister remains at bedside. Care ongoing.
[2025-02-05 20:47] LABS: Blood Urea Nitrogen 45 mg/dl (9-20); Calcium 8.6 mg/dl (8.4-10.2); Carbon Dioxide 28 mmol/L (22-30); Chloride 111 mmol/L (98-107); Estimated Creatinine Clearance 45 ml/min; Glucose 262 mg/dl (70-99); Potassium 3.7 mmol/L (3.5-5.1); Sodium 146 mmol/L (135-145); eGFR > 60.00
--- NOTE | 2025-02-05 20:51 | PTCARENOTE ---
Received pt from previous RN. Pt is nonverbal, opens eyes with tactile stimuli, lethargic. Afib w/ PVCs on the monitor. Received levo gtt at 4 mcgs for SBP >90, titrated per protocol (see worklist). Highflow 50L 100%, O2 sat 92%, lungs
coarse/diminished, tachypneic/shallow. Incont of urine. Rectal tylenol given for temp 101.1 (see MAR). CHG bath and mouth care provided. Family at bedside. Safe environment maintained.
[2025-02-06] VITALS (23 sets, daily range): BP systolic 85–112; BP diastolic 60–83; BMI 21.1
[2025-02-06 00:07] LABS: Glucose - Point of Care 134 mg/dl (70-99)
[2025-02-06] MEDS: NOVOLOG FLEXPEN-LOW RESISTANCE SC ×2 (00:08→06:09)
[2025-02-06] MEDS: ZOSYN 50 IV ×2 (02:00→08:11)
[2025-02-06] MEDS: LEVOPHED 250 IV (05:55)
[2025-02-06 06:07] LABS: Glucose - Point of Care 130 mg/dl (70-99)
[2025-02-06 06:13] LABS: ALT (SGPT) 12 U/L (0-50); AST (SGOT) 22 U/L (17-59); Albumin 2.7 g/dl (3.5-5.0); Alkaline Phosphatase 41 U/L (38-126); Blood Urea Nitrogen 48 mg/dl (9-20); Calcium 8.8 mg/dl (8.4-10.2); Carbon Dioxide 28 mmol/L (22-30); Chloride 118 mmol/L (98-107); Estimated Creatinine Clearance 51 ml/min; Glucose 131 mg/dl (70-99); Potassium 4.0 mmol/L (3.5-5.1); Sodium 150 mmol/L (135-145); Total Protein 5.7 g/dl (6.3-8.2); eGFR > 60.00
[2025-02-06 06:38] LABS: Hematocrit 41.1 % (39.0-52.0); Hemoglobin 13.5 g/dL (13.0-18.0); Mean Corp Hgb Conc. 32.8 g/dL (33.0-37.0); Mean Corpuscular Volume 100.7 fL (80.0-94.0); Platelet Count 123 10^3/uL (130-400); Red Cell Dist. Width 12.2 % (11.5-14.5)
--- NOTE | 2025-02-06 07:30 | PTCARENOTE ---
Received patient A&Ox0, lethargic, arousable to pain stimuli, on HFNC 50L 100%, Afib w/ NSR in between, SBP within goal range on Levophed @2mcg/min, NPO, Hypoactive bowel sounds, incontinent. Families at bedside, updates given.
--- NOTE | 2025-02-06 07:32 | W.PN.PUL3 ---
Addendum entered and electronically signed by Sherley Schmid DO 02/06/25 12:51:
Patient now on comfort measures
We will sign off at this time, please call with questions
Original Note:
Today's Communication / Plan
-
Remains on HFNC, 90%
ECHO showing HCM, no other findings
Pressor requirements remain
Sister at bedside--she reluctantly agreed that the plan would be to w/d today
Awaiting more family members to arrive
FU decision making today
Assessment
-
Patient is a 79-year-old male with past medical history of dementia, Parkinson's, hypertrophic cardiomyopathy, atrial fibrillation on anticoagulation, chronic depression, insulin-dependent diabetes who presents from intermediate care with acute
hypoxic respiratory distress. Arrived in the ED on 100% nonrebreather and was placed on high flow. Had a temp of 101F, blood pressure was 100/65 with a pulse rate of 88 and he was satting 93% on the high flow. Blood Gas was 7.45/44/69/30.6. X-ray
with right lower lobe opacity for me. CT of the head shows no acute interval changes. ECG with atrial fibrillation no acute ST or T wave changes. CBC was unremarkable with hemoglobin of 15.7. Electrolytes show a sodium of 157 with a bicarb of 28
and a chloride of 120. BUN/creatinine were 45 and 1.2 respectively. BNP > 46215. He is placed on pressors and admitted to IMU for shock from possible cardiogenic vs septic vs obstructive shock.
Shock on pressors, unclear etiolgy
Possible CHF, PE, and/or sepsis
Fever
Acute hypoxic respiratory failure on NRB 100%
RLL Infiltrate
Unresponsiveness
Hypernatremia
Decreased PO intake, FTT
Afib on EKG
Acute HF exacerbation, proBNP >70774
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
Atrial fibrillation on Eliquis
CHF
Hypertrophic cardiomyopathy
CVA
Dementia
IDDM
Parkinson
HAO on CPAP
Plan
Hypoxemia noted on arrival, placed on 100% NRB-->HFNC 90%
Prior history of lung disease is noted including HAO on CPAP
He does not have underlying history of hypoxemia
Suspect patient has CHF but cannot r/o PE possibly due to profound hypoxemia
ABG showing paO2 69
CXR/CT obtained indicating CHF findings, cannot exclude VTE
Would need CTA to rule out PE but we discussed the risk and benefit of this study, given oliguria/creatinine 1.1 in an elderly patient
The patient's brother would not want patient to go undergo further testing
Patient has a history of hypertrophic cardiomyopathy
No prior echo is available for review
Agree with repeat study -- reviewed/HCM noted, no other findings
He does appear to be in overt heart failure with proBNP greater than 27,000
He is unable to be diuresed due to hypotension, he is currently on pressors
Maintain n.p.o. status given hypoxemia
Aspiration precautions
He has had decreased p.o. intake in the last few months
We need to address feeding status eventually
Hypernatremia noted, likely dehydration
Was placed on IV fluids as an outpatient but developed acute decompensated heart failure
He is placed on D5 IV fluid--this is not helping in terms of heart failure diagnosis
We had a prolonged conversation/discussed with the family regarding patient's long-term prognosis and current respiratory status. We are limited in terms of her treatment options based on his hypotension and overt heart failure. He would also need
to be ruled out for underlying VTE. This would be also at the expense of his renal function especially at his age. Ultimately, this does not change his overall trajectory or quality of life given his deterioration in the past 6 months in terms of
self care, feeding himself, mobility. He would still be appropriate for hospice regardless of where his clinical status goes.
The patient's brother understands the overall poor prognosis in this situation but his sister has been stating that she does not feel comfortable placing him on a morphine drip even though this is what the brother understands the patient would want.
The sister states that she would not want this for herself therefore she cannot wish this upon her brother. I have implored her to make decisions based on what the patient has expressed for himself or what he has placed upon his living will and
not to follow her own wishes for herself. The patient's brother indicates that he is only willing to extend care for another 24 hours and he would like to withdrawal after that. They were both in agreement that they would meet with our hospice
team to get more information and help navigate this decision. Consult is placed.
He is DNR.
We will follow
Diagnostic Data
Chest X-Ray: 02/05/25- . Mild interstitial prominence, suggestive of mild pulmonary edema.
2. Moderate cardiomegaly.
3. Haziness of right hemidiaphragm, which may be related to right lower lobe airspace disease and/or small right pleural effusion.
08/16/21- . Mild interstitial prominence, suggestive of mild pulmonary edema.
2. Moderate cardiomegaly.
3. Haziness of right hemidiaphragm, which may be related to right lower lobe airspace disease and/or small right pleural effusion.
CT Scan: HCT 02/05/25-. No acute intracranial abnormalities appreciated.
2. Mild atrophy and mild chronic small vessel change.
3. No significant change compared to prior study.
Echo:
PFT's:
Reports and relevant images were personally reviewed.
Total time spent on this consultation __50__ minutes which includes review of history, physical exam, medications, laboratory data, personal review of imaging, extensive review of outpatient records, discussion with care team and respiratory therapy.
Subjective Data
-
Date of Service:
Date of Service: February 06, 2025
Chief Complaint: Pulmonary Follow Up
Subjective:
Remains clinically unchanged, on HFNC
Unresponsive
Objective Data
Data Reviewed
Vital Signs / I&O / Oxygen:
Vital Signs
Temp Pulse Resp BP Pulse Ox
99.3 F 75 24 99/60 99
02/06/25 03:13 02/06/25 07:00 02/06/25 07:00 02/06/25 07:00 02/06/25 07:00
Intake and Output
02/05/25 02/06/25 02/07/25
06:59 06:59 06:59
Intake Total 50 / 50 2567.5 / 2567.5
Output Total
Balance 50 / 50 2542.5 / 2542.5
SaO2 99
Nasal Cannula flow liters per 50
minute
Physical Exam
General: Poor Appetite and Other (minimally responsive, tachypneic/shallow breathing)
HEENT: Normocephalic and Anicteric
Cardiovascular: S1-S2 and Regular Rhythm
Respiratory: Crackles and Non-Labored Respirations
GI: Soft, Non Distended and Non Tender
Neurology: Unresponsive, Lethargic and Non Verbal
Skin: Warm and Dry
Labs/Micro/Reports
Lab Data
02/06/25 05:20
02/06/25 05:20
Microbiology
02/05/25 17:51 Nose Nasal Screen MRSA (PCR) - Final
MRSA not detected - performed by PCR methodology.
02/05/25 02:02 Blood/Venous Blood Culture - Preliminary
No Growth in 24 hours- Final report to follow
02/05/25 02:10 Blood/Venous Blood Culture - Preliminary
No Growth in 24 hours- Final report to follow
02/05/25 06:36 Urine Legionella Urinary Antigen - Final
Negative for Legionella pneumophila Serogroup 1 antigen.
A negative result does not rule out the possiblity of
Legionella infection due to other serogroups or species of
Legionella. Clinical correlation is recommended.
02/05/25 06:36 Urine Streptococcus pneumoniae Antigen (M - Final
Negative for Streptococcus pneumoniae antigen.
A negative result does not exclude infection with
Streptococcus pneumoniae. Clinical correlation is
recommended.
02/05/25 03:57 Nasal Swab Influenza Types A & B (SONIA) - Final
Negative for Influenza A & B, NAAT
Negative results must be combined with clinical observations
and patient history.
Nucleic Acid Amplification test (NAAT)performed on the
[employer] platform.
--- NOTE | 2025-02-06 09:18 | PHA.VAN.FU ---
Vancomycin Assessment / Plan
- Assessment
Renal Function: Stable
WBC's are: WNL
In the past 24 hrs, patient has been: Febrile
Concomitant Antimicrobials: Piperacillin/tazobactam
- Assessment - Therapeutic Drug Monitoring
Random Level: 02/06 @05:20 was 16.5
- Dosing Plan
Dosing by Level: Hold off on dosing today (Level was ~24hrs after dose. Will hold off today(02/06))
- Monitoring Plan
Random Level: 02/07 with am labs
- Follow Up
Pharmacy will continue to follow.
Vancomycin Follow UP
- -
Patient Age: 79
Patient Sex: Male
Vancomycin Day #: 2
Indication: Pulmonary/Respiratory
Requesting Provider: Dr. Marte
Pertinent Antimicrobial Allergies:
sulfa - reaction unknown
Height / Weight:
Height 5 ft 10 in
Actual Weight 66.8 kg
Pertinent Past Medical History: chronically immobile, DM2
- Vital Signs / Lab Results
Temp Pulse Resp BP Pulse Ox
97.6 F 75 24 99/60 98
02/06/25 08:06 02/06/25 07:00 02/06/25 07:00 02/06/25 07:00 02/06/25 07:53
Lab Results - Hematology
02/05/25 02/05/25 02/06/25
01:29 06:37 05:20
WBC 9.6 8.1 9.3
Lab Results - Chemistry
02/05/25 02/05/25 02/05/25
01:29 06:36 17:51
BUN 45 H 44 H Cancelled
Creatinine 1.2 1.1 Cancelled
Estimated Creat Clear 49 53 Cancelled
Albumin 3.5
02/05/25 02/05/25 02/06/25
18:37 20:05 05:20
BUN Cancelled 45 H 48 H
Creatinine Cancelled 1.2 1.1
Estimated Creat Clear Cancelled 45 51
Albumin 2.7 L
02/05/25 02/05/25
01:49 06:36
Lactic Acid 2.5 H 2.0
Microbiology Results
02/05/25 03:22 Urine Culture - Final
Urine NO GROWTH
02/05/25 02:10 Blood Culture - Preliminary
Blood/Venous Positive culture in progress
Gram Stain - Preliminary
02/05/25 17:51 Nasal Screen MRSA (PCR) - Final
Nose MRSA not detected - performed by PCR methodology.
02/05/25 02:02 Blood Culture - Preliminary
Blood/Venous No Growth in 24 hours- Final report to follow
02/05/25 06:36 Legionella Urinary Antigen - Final
Urine Negative for Legionella pneumophila Serogroup 1 antigen.
A negative result does not rule out the possiblity of
Legionella infection due to other serogroups or species of
Legionella. Clinical correlation is recommended.
Streptococcus pneumoniae Antigen (M - Final
Negative for Streptococcus pneumoniae antigen.
A negative result does not exclude infection with
Streptococcus pneumoniae. Clinical correlation is
recommended.
02/05/25 03:57 Influenza Types A & B ([facility]) - Final
Nasal Swab Negative for Influenza A & B, NAAT
Negative results must be combined with clinical observations
and patient history.
Nucleic Acid Amplification test (NAAT)performed on the
[employer] platform.
Therapeutic Drug Monitoring
Random Vancomycin 16.5 ug/ml 02/06/25 05:20
[2025-02-06] MEDS: ZOFRAN 4 MG IV (11:13)
[2025-02-06] MEDS: HALDOL 1 MG IV (11:13)
[2025-02-06] MEDS: ROBINUL 0.2 MG IV (11:13)
[2025-02-06] MEDS: MORPHINE SULFATE 1 MG IV ×3 (11:13→15:06)
--- NOTE | 2025-02-06 11:15 | PTCARENOTE ---
Patient transitioned to comfort care, PRN meds given based on assessments and family requests.
--- NOTE | 2025-02-06 13:41 | W.PN.HOSP.TC ---
Addendum entered and electronically signed by Tyree Mohan MD 02/12/25 13:56:
�Septic Shock, POA
Addendum entered and electronically signed by Tyree Mohan MD 02/07/25 15:50:
[id number]
Original Note:
Today's Communication/Plan
-
Comfort care
Assessment / Plan
Assessment / Plan
HEENT: Normocephalic, Anicteric and Moist Mucous Membranes
Cardiovascular: S1/S2 and Regular Rhythm
Respiratory: Rales, Non-Labored Respirations and Other (on NRB)
GI: Soft, Non Distended and Non Tender
Neurology: Other (lethargic, minimally arousable)
Skin: Warm and Dry
General: Comfortable and Other (chronically ill appearing, pale)
79 y.o with fever, acute hypoxic respiratory failure, depressed mental status, metabolic alkalosis and severe hyponatremia. BNP evated and know HCM history but does not appear overloaded and not hypertensive here. Suspect aspiration pneumonia in
setting of declining mental status and hypernatremia.
PLAN:
1. Hypoxic respiratory failure - Suspect aspiration pna with RLL infiltrate. Very limited airway movement on the right. Cannot rule bronchial mucus plug. Despite elevated bnp, no peripheral edema, no jvd, no abraham pulmonary edema.
- admit to med/surg
- poor candidate for bibap due to mental status and aspiration risk
- HI FLOW 60L, 100% FIO2 keep sat > 95 +/- NRB as needed.
- blood cultures sent
- start Vanc/Zosyn
- obtain u/a and rule out UTI
- pulmonary consultation
- no intubation
2. Hypernatremia - Na 157. Unclear duration. Seemed to have had labs yesterday afternoon demonstrating this. Labs from november normal. Suspect 2/2 worsening mental status with hypovolemic hyponatremia rather than DI
- urine osmolality
- free water deficit = 3 L for goal Na 147 , corrected over 48@ D5W at 100ml/hr then reduce to 75ml/hr when < 147
- check Na q 4 - 6 hours
3. CHF - BNP > 58[address]. Known HCM. Some pulmonary edema, no peripheral or JVD. Cannot rule out flash. Clinical picture otherwise is suggestive of dehydration and infection.
- check echo
- given lasix in ED, monitor and redose if no improvement
- cardiology consultation
4. AFIB
- continue eliquis
- off rate control, prn metoprolol
5. DM II
- npo except meds
- sliding scale insulin for now
DVT PPX - on eliquis
Code status - DNR/DNI, poor prognosis given severe respiratory failure and limited acute response to lasix. Left a message for commercial loan specialist on behalf of family.
02/06�transition to comfort and possible inpatient hospice. After extensive conversations with family, decision was for goals of comfort. Comfort care order set was placed. All questions were asked.
Anticipated Discharge: Within 24 hours
Subjective/Interval History
-
Date of Service: February 06, 2025
switching to comfort
Objective Data
-
Labs:
Laboratory Results
02/06/25
05:20
WBC 9.3
Hgb 13.5
Hct 41.1
Plt Count 123 L
Sodium 150 H
Potassium 4.0
Chloride 118 H
Carbon Dioxide 28
BUN 48 H
Creatinine 1.1
Glucose 131 H
Calcium 8.8
Total Bilirubin 1.8 H
AST 22
ALT 12
Alkaline Phosphatase 41
Vital Signs:
Vital Signs
Temp Pulse Resp BP Pulse Ox
97.6 F 108 23 101/69 74
02/06/25 08:06 02/06/25 13:00 02/06/25 13:00 02/06/25 10:30 02/06/25 13:00
I&O
02/05/25 02/06/25 02/07/25
06:59 06:59 06:59
Intake Total 2567.5 / 2575.0 80.0 / 80.0
Output Total
Balance 2542.5 / 2550.0 80.0 / 80.0
Review of Systems
-
History Source: Patient
All other systems: Not reviewed unless documented
Data Reviewed
-
Diagnostic Radiology: Report Reviewed by me
CT Scan: Report Reviewed by me
Labs: Labs Reviewed by me
[2025-02-06] MEDS: VALIUM INJECTION 2 MG IV (13:46)
--- NOTE | 2025-02-06 15:33 | CHAP ---
Visited Deepak at 12:15, requested by nurse. Deepak was non-responsive, surrounded by loving family. His sister shared background, saying that Deepak's jimena was central to his life, which was focused on helping others. 'Just a wonderful human
being,' she said. Emotional and spiritual support provided, along with a prayer blanket.
[2025-02-06] MEDS: MORPHINE 100 IV (15:51)
--- NOTE | 2025-02-06 16:00 | PTCARENOTE ---
Reassessed the patient, started morphine drip per end of life protocol. Updated families at bedside, all questions answered.
[2025-02-06] MEDS: MORPHINE SULFATE 2 MG IV ×3 (16:07→17:25)
--- NOTE | 2025-02-06 16:56 | PTCARENOTE ---
Assumed care of patient. patient is on comfort care. non verbal respiratory distress completed as charted. administering morphine per protocol. support provided to family.
--- NOTE | 2025-02-06 18:10 | W.PN.DEATH ---
Pronouncement of
-
Called to see patient to pronounce.
No spontaneous heart tones or respirations noted.
Patient not responsive to verbal stimuli.
Patient is pronounced .
Time of : 17:52
Date of : 02/06/25
Cause of : Acute hypoxic respiratory failure
Congestive heart failure
Hypertrophic cardiomyopathy
Pneumonia
Family Notified: Yes
--- NOTE | 2025-02-06 21:27 | PTCARENOTE ---
Pt at 175. Family at bedside. Jennifer RN called [facility]. Family took pt's belongings. [facility] [place].
--- NOTE | 2025-02-07 15:49 | W.DS.TRANS ---
DC Summary - [employer]
-
Discharge Instructions:
Instructions:
Stand-Alone Forms:
Changes to Home Medications: No
Discharge Medications:
DC Medications w/original date entered in [employer]
acetaminophen 325 mg tablet 650 mg PO Q4HPRN PRN mild pain/fever 08/16/21
apixaban 5 mg tablet (Eliquis) 5 mg PO BID Blood clot prevention/tx 08/16/21
atorvastatin 20 mg tablet 20 mg PO HS High cholesterol 08/16/21
bisacodyl 10 mg rectal suppository 10 mg WA DAILYPRN PRN if lactulose ineffective 08/16/21
furosemide 20 mg tablet 20 mg PO DAILY Fluid retention/Swelling 08/16/21
insulin aspart U-100 100 unit/mL subcutaneous solution (Novolog U-100 Insulin aspart) 0 units SC .SLIDING SCALE MEALS Diabetes 08/16/21
insulin glargine 100 unit/mL (3 mL) subcutaneous pen (Basaglar KwikPen U-100 Insulin) 10 unit SC DAILY Diabetes 08/16/21
lactulose 20 gram/30 mL oral solution 30 ml PO HSPRN PRN lack of bm 08/16/21
metoprolol succinate 50 mg tablet,extended release 24 hr 50 mg PO DAILY Blood pressure 08/16/21
midodrine 5 mg tablet 5 mg PO TID@0030,0830,1630 Blood pressure 08/16/21
polyethylene glycol 3350 17 gram oral powder packet 17 grams PO DAILY Constipation 08/16/21
polyvinyl alcohol-povidone (PF) 1.4 %-0.6 % eye drops in a dropperette (Refresh Classic (PF)) 2 drops BOTH EYES BID dry eyes 08/16/21
potassium chloride 10 mEq tablet,extended release(part/cryst) 10 meq PO DAILY Electrolyte Repletion 08/16/21
selenium sulfide 1 % shampoo (Selsun Blue) 1 applic topical TUFR scalp issues 08/16/21
sennosides 8.6 mg tablet (senna) 2 tab PO HS Constipation 08/16/21
sodium chloride 0.65 % nasal spray aerosol (Saline Nasal) 1 sprays intranasal HS nasal dryness 08/16/21
tamsulosin 0.4 mg capsule 0.4 mg PO HS Urinary issue 08/16/21
venlafaxine 150 mg capsule,extended release 24 hr (Effexor XR) 150 mg PO HS Depression 08/16/21
venlafaxine 75 mg capsule,extended release 24 hr (Effexor XR) 75 mg PO DAILY@1830 Depression 08/16/21
Home Medication Changes
na
Pending Results: Yes
--- NOTE | 2025-02-08 08:57 | CM ---
Patient on 02/06/25 @ 17:52.
--- NOTE | 2025-02-12 12:38 | PN.CDI ---
CDI
- -
CDI:
Physician Documentation Request
Admit Date: 02/05/25 05:00
Dear Doctor Kimberlee
Please review the following and provide your response in the progress notes.
Clinical Indicators: Patient with Acute Hypoxic Respiratory failure and Pneumonitis
Initial Vital Signs: T 101, Pulse 100, Resp 37, BP 104/79
PN 8/2 Possible CHF, PE and/or Sepsis
PN 8/1 He is placed on pressors and admitted to IMU for shock from possible cardiogenic shock vs septic vs obstructive shock
Recognized standard criteria for this condition and other associated definitions:
�Bacteremia
-Abnormal laboratory test does not indicate a clinically ill patient
�Sepsis
-Systemic manifestations of infection, with 2 or more SIRS criteria which include:
-Fever > 100.9��F or hypothermia < 96.8��F
-Leukocytosis WBC > 12,000 or leukopenia, WBC < 4,000, or > 10% bands
-Tachycardia- > 90 beats/minute
-Tachypnea- RR > 20 breaths/minute or PaCO2 < 32mmHg
Source: Merck Manual 2013
-Documentation should include the known or suspected organism, and the underlying infection, such as UTI or pneumonia
�Severe Sepsis
-Sepsis with associated acute organ dysfunction, such as renal or respiratory failure
-Documentation should indicate the association between the sepsis and the organ dysfunction
�Septic Shock
-Severe sepsis with associated with circulatory failure, evidenced by hypotension and hypoperfusion
Based on the above information and the recognized standard SIRS criteria, please clarify if sepsis is still an accurate diagnosis, and reflective of the patient�s condition, to ensure quality of the medical record.
Please clarify in the Progress Notes:
�Sepsis POA is a valid diagnosis
Severe sepsis with septic shock is a valid diagnosis
�After study sepsis has been ruled out
�Other
�Unable to determine
Use of terms such as suspected, likely, concern for, or probable (associated with a specific diagnosis that is being evaluated, monitored, or treated as if it exists) are acceptable and can be coded in the inpatient setting, when documented at the
time of discharge.
Thank you,
Pema Graham
Housekeeping Worker Inpatient
Please use your independent medical judgment in providing your response.
--- NOTE | 2025-02-12 12:49 | PN.CDI ---
CDI
- -
CDI:
Physician Documentation Request
Admit Date: [f_Reg Admit Date Time]
Dear Doctor Shukri
Please review the following and provide your response in the progress notes.
Clinical Indicators:
PN 8/1 he is placed on pressors and admitted to IMU for shock from possible cardiogenic vs septic vs obstructive shock
PN 8/2 Shock on pressors, unclear etiology
Please indicate in your progress notes the etiology of the shock:
Cardiogenic shock
Septic shock
Obstructive shock
____ - Other
____ - Unable to determine
Use of terms such as suspected, likely, concern for, or probable are acceptable for a diagnosis that is being evaluated, monitored or treated as if it exists and can be coded in the inpatient setting, when documented at the time of discharge.
Thank you,
Pema Graham
Orthotic Aide Inpatient
Please use your independent medical judgment in providing your response.
== END 2025-02-06 21:29 | disposition expired | DRG 871 ==
LOC: ICU 05:00
PROVIDERS: ADMITTING PHYSICIAN Internal Medicine; ATTENDING PHYSICIAN Internal Medicine; CONSULT PHYSICIAN Internal Medicine; EMERGENCY PHYSICIAN Emergency Medicine; FAMILY PHYSICIAN Student in an Organized Health Care Education/Training Program
PROC: 5A0935A Assistance with Respiratory Ventilation, Less than 24 Consecutive Hours, High Flow/Velocity Cannula (ICD-10-PCS; 2025-02-05)
DX: A41.9 Sepsis, unspecified organism (principal); J69.0 Pneumonitis due to inhalation of food and vomit; J96.01 Acute respiratory failure with hypoxia; R65.21 Severe sepsis with septic shock; E87.0 Hyperosmolality and hypernatremia; I42.2 Other hypertrophic cardiomyopathy; E87.3 Alkalosis; F02.83 Dementia in other diseases classified elsewhere, unspecified severity, with mood disturbance; R57.9 Shock, unspecified; Z66 Do not resuscitate; E11.9 Type 2 diabetes mellitus without complications; E78.00 Pure hypercholesterolemia, unspecified; E86.0 Dehydration; I11.0 Hypertensive heart disease with heart failure; I48.91 Unspecified atrial fibrillation; G20.A1 Parkinson's disease without dyskinesia, without mention of fluctuations; F32.A Depression, unspecified; G47.33 Obstructive sleep apnea (adult) (pediatric); R62.7 Adult failure to thrive; I50.9 Heart failure, unspecified; Z79.01 Long term (current) use of anticoagulants; Z79.4 Long term (current) use of insulin; Z88.2 Allergy status to sulfonamides; Z88.8 Allergy status to other drugs, medicaments and biological substances; Z79.899 Other long term (current) drug therapy; Z51.5 Encounter for palliative care; Z86.73 Personal history of transient ischemic attack (TIA), and cerebral infarction without residual deficits; Z11.52 Encounter for screening for COVID-19
CPT/HCPCS: 36415; 51701; 70450; 71045; 80048; 80053; 80202; 81003; 81015; 82805; 82962; 83605; 83735; 83880; 83935; 84145; 85025; 85027; 85610; 87040; 87086; 87150; 87205; 87449; 87502; 87641; 87811; 87899; 93005; 93306; 96365; 96367; 96375; 99291; Q9950